=== PATIENT | female | born 1975 | race Caucasian/White ===

== ENCOUNTER 2024-01-08 07:30 | Outpatient (CLI) | payer BC, SELFPAY ==
--- OUTSIDE RECORDS SUMMARY | 2024-01-11 05:50 | XMS_ITS ---
Author Organization [facility] Address [address] [place] [address] Care Team Providers Care Crab Backer Name Role Phone Unavailable Unavailable Unavailable Surgery Details Not on file Complications Check Surgery Details section. Procedure Estimated Blood Loss Check Surgery Details section. Procedure Findings Check Surgery Details section. Procedure Specimens Taken Check Surgery Details section.
--- OUTSIDE RECORDS SUMMARY | 2024-01-11 05:50 | XMS_ITS | Referral Summary ---
Author Organization [facility] Address [address] [place] [address] Care Team Providers Care Custom Ski Maker Name Role Phone Chandan Camarillo M.D. Primary Care Provider [phone] Source Comments Patient records contain information from all sites at [facility]. For routine questions regarding patient records, call [phone] during business hours, M-F 8:00 AM - 5:00 PM Central Time. Record requests for emergency care only can be directed to [phone] at any time.[facility] Encounters Date Type Department Care Team Description 10/18/2023 5:20 AM CDT E-Visit [facility] Express Care [address] [place] [address] Radha Irby, CORRIE, C.N.P., M.S.N. Express Care Online for Sinus Symptoms (sinusitis) 10/12/2023 Refill Department of Family Medicine, [facility], in [address] [phone] Chandan Camarillo M.D. Med Refill from Last 3 Months Allergies Active Allergy Reactions Criticality Noted Date Comments Anesthetics - Dinah Type- Parabens Other (see comments) 10/04/2013 ESTERS Penicillins Angioedema,Hives only, no other systemic symptoms 12/22/2014 hives,throat swelling (see note 10/11/2005) Sulfa (Sulfonamide Antibiotics) Other (see comments) 10/04/2013 SULFA DRUGS Medications Medication Sig Dispensed Refills Start Date End Date Status losartan-hydroCHLOROt hiazide (HYZAAR) 50-12.5 mg per tabletIndications:Hyp ertension Essential Primary Take 1 tablet by mouth daily. 90 tablet 3 02/01/2023 Active citalopram (CeleXA) 20 mg tabletIndications:Adj ustment Disorder Mixed Reaction Take 1 tablet (20 mg total) by mouth daily. 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 Hyperlipidemia Mixed 12/07/2014 Overview: Mixed hyperlipidemia 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 05/18/2010 Immunizations Name Administration Dates Next Due Influenza TIV (IM) 03/21/2012 Influenza, Seasonal, Injectable 04/09/20 14,03/28/2013,03/21/2012,2010 Influenza, Unspecified 05/03/2018,2015,04/09/2014,2011,04/12/2009 SARS-COV-2 (COVID-19) - PFIZ ER (Discontinued)(12 years or older) 06/28/2021,06/07/2021 Td (Adult), adsorbed 06/14/2006 Td Preservative Free (TENIVA C, DECAVAC) 06/14/2006 Tdap 12/22/2014 influenza vaccine quad (FLUZONE/FLUARIX) (6 months and older)(PF) 04/06/2022,06/28/2021,05/07/2019 Social History Tobacco Use Types Packs/Day Years Used Date Smoking Tobacco: Every Day Cigarettes 0.8 2 Smokeless Tobacco: Never Alcohol Use Standard Drinks/Week Comments No 0 (1 standard drink = 0.6 oz pur e alcohol) Humiliation, Afraid, Rape, and Kick questionnair e Answer Date Recorded Within the last year, have y ou been afraid of your partner or ex-partner? No 01/25/2023 Within the last year, have y ou been humiliated or emotionally abused in other ways by your partner or ex-partner? No Within the last year, have y ou been kicked, hit, slapped, or otherwise physically hurt by your partner or ex-partner? No 01/25/2023 Within the last year, have y ou been raped or forced to have any kind of sexual activity by your partner or ex-partner? No 01/25/2023 Social Connection and Isolat ion Panel [NHANES] Answer Date Recorded In a typical week, how many times do you talk on the phone with family, friends, or neighbors? More than three times a week 06/09/2022 How often do you get togethe r with friends or relatives? More than three times a week 06/09/2022 How often do you attend [facility] or confucianism services? More than 4 times per year 06/09/2022 Do you belong to any clubs o r organizations such as sabianist groups, unions, fraternal or athletic groups, or school groups? No 06/09/2022 How often do you attend meet ings of the clubs or organizations you belong to? Patient declined 06/09/2022 Are you , , di vorced, , never , or living with a partner? Never 06/09/2022 AUDIT-C Answer Date Recorded Q1: How often do you have a drink containing alc ohol? Never 06/09/2022 Average Number of Drinks Not on file 022 Frequency of Binge Drinking Not on file 08/2021 Overall Financial Resource Strain (CARDIA) Answe r Date Recorded How hard is it for you to pa y for the very basics like food, housing, medical care, and heating? Somewhat hard 01/25/2023 PHQ-2 Answer Date Recorded PHQ-2 Score 1 01/25/2023 [facility] - Occupational Stress Questionnaire Answer Date Recorded Do you feel stress - tense, restless, nervous, or anxious, or unable to sleep at night because your mind is troubled all the time - these days? Only a little 06/09/2022 Exercise Vital Sign Answer Date Recorde d On average, how many days pe r week do you engage in moderate to strenuous exercise (like a brisk walk)? 1 day 06/09/2022 On average, how many minutes do you engage in exercise at this level? 30 min 06/09/2022 Hunger Vital Sign Answer Date Recorded Within the past 12 months, y ou worried that your food would run out before you got the money to buy more. Never true Within the past 12 months, t he food you bought just didn't last and you didn't have money to get more. Sometimes true PRAPARE - Transportation Answer Date Re corded In the past 12 months, has l ack of transportation kept you from medical appointments or from getting medications? No 01/07 In the past 12 months, has l ack of transportation kept you from meetings, work, or from getting things needed for daily living? No 01/25/2023 Depression Answer Date Recor ded PHQ-9 Total Score (max 27) 11 10/31 Nutrition Answer Date Recorded Nutrition: EVOO Fat Source Yes 06/09 On average, how many serving s of fruits and vegetables do you eat per day (serving size is equal to 1 cup or approximately the size of a tennis ball)? 0-1 06/09/2022 Dental Answer Date Recorded Dental: Regular Dentist No 10/25/19 Employment Answer Date Recorded Employment status Employed and actively working without restrictions 06/09/2022 Housing Stability Answer Date Recorded What is your living situation today? I have a [facility] place to live 01/25/2023 Education Answer Date Recorded What is the highest level of school you have completed or the highest degree you have received? Associate degree: occupational, technical, or vocational program 06/09/2022 Sex and Gender Information Value Date Recorded Sex Assigned at Female 10/24/2021 3:36 AM CDT Gender Identity Female 05/28/2017 8:00 PM GRAVEL WEIGHER Sexual Orientation Straight 05/28/2017 8: 00 PM GRAVEL WEIGHER Last Filed Vital Signs Vital Sign Reading Time Taken Comments Blood Pressure 102/63 02/01/2023 3:[address] rage Pulse 62 02/01/2023 3:27 PM CDT Temperature 36.4 ??C (97.5 ??F) 02/01/2023 3:27 PM CD T Respiratory Rate - - Oxygen Saturation 97% 05/18/2022 2:49 PM GRAVEL WEIGHER Inhaled Oxygen Concentration - - Weight 126 kg (278 lb 3.5 oz) 02/01/2023 3:27 PM CDT Height 165 cm (5' 4.96) 06/14/2022 3:24 PM GRAVEL WEIGHER Body Mass Index 46.35 06/14/2022 3:24 PM GRAVEL WEIGHER Plan of Treatment Not on file Procedures Procedure Name Priority Date/Time Associated Diagnosis Comments LIPID PANEL, S Routine 02/01/2023 3:20 PM CDT Hyperlipidemia Mixed BASIC METABOLIC PANEL, S/P Routine 02/01/2023 3:20 PM CDT Hypertension Essential Primary BI BREAST SCREENING BILATERAL WITH TOMOSYNTHESIS RAD - Routine (most inpatients and all outpatients) 07/15/2019 3:40 PM GRAVEL WEIGHER Screening Mammogram Breast Cancer HIV-1/-2 AG AND AB SCREEN Routine 06/13/2017 4:01 PM GRAVEL WEIGHER Screening For Venereal Disease from Last 3 Months or Most Recently Relevant to Health Maintenance Results * (ABNORMAL) Lipid Panel (02/01/2023 3:20 PM CDT) Triglycerides 251(H) mg/dL 02/01/2023 4:02 PM CDT [facility] Comment: ----REFERENCE VALUE---- Normal: <150 mg/dL Borderline High: 150-199 mg/dL High: 200-499 mg/dL Very High: > or =500 mg/dL Cholesterol, Total 203(H) mg/dL 2022 4:02 PM CDT [facility] Comment: ----REFERENCE VALUE---- Desirable: < 200 mg/dL Borderline High: 200 - 239 mg/dL High: > or = 240 mg/dL Cholesterol, LDL, Calculated 115 mg/dL 02/01/2023 4:02 PM CDT [facility] Comment: ----REFERENCE VALUE---- Desirable: <100 mg/dL Above Desirable: 100-129 mg/dL Borderline High: 130-159 mg/dL High: 160-189 mg/dL Very High: >=190 mg/dL ----ADDITIONAL INFORMATION---- LDL cholesterol calculated using the Mckeon/NIH equation. Cholesterol, HDL 44(L) >=50 mg/dL 02/02/20 4:02 PM CDT [facility] Cholesterol, Non-HDL, Calculated 159 mg/dL 02/01/2023 4:02 PM CDT [facility] Comment: ----REFERENCE VALUE---- Desirable: <130 mg/dL Above Desirable: 130-159 mg/dL Borderline High: 160-189 mg/dL High: 190-219 mg/dL Very High: > or =220 mg/dL Fasting (8 HR or more) n 02/01/2023 3:21 PM CDT [facility] Blood (Blood, Venous) 02/01/2023 3:20 PM CDT 02/01/2023 3:21 PM CDT Chandan Camarillo M.D. LAB BLOOD ADD-ON [facility] [address] [place] [address], [facility] [address] [place] [phone] * (ABNORMAL) Basic Metabolic Panel (02/01/2023 3:20 PM CDT) Potassium, P 4.0 3.6 - 5.2 mmol/L 02/01/2023 4:21 PM CDT [facility] Sodium, P 135 135 - 145 mmol/L 02/01/2023 4:21 PM CDT [facility] Chloride, P 100 98 - 107 mmol/L 02/01/2023 4:21 PM CDT [facility] Bicarbonate, P 21(L) 22 - 29 mmol/L 02/01/2023 4:21 PM CDT [facility] Anion Gap, P 14 7 - 15 02/01/2023 4:21 PM CDT [facility] BUN (Blood Urea Nitrogen), P 25(H) 6 - 21 mg/dL 02/01/2023 4:21 PM CDT [facility] Creatinine 0.88 0.59 - 1.04 mg/dL 02/01/2023 4:21 PM CDT [facility] Estimated GFR (eGFR) 82 >=60 mL/min/BSA 02/01/2023 4:21 PM CDT [facility] Comment: Estimated GFR calculated using the 2020 CKD_EPI creatinine equation. Calcium, Total, P 9.0 8.6 - 10.0 mg/dL 02/01/2023 4:21 PM CDT [facility] Glucose, P 88 70 - 140 mg/dL 02/01/2023 4:21 PM CDT [facility] Blood (Blood, Venous) 02/01/2023 3:20 PM CDT 02/01/2023 4:09 PM CDT Chandan Camarillo M.D. LAB BLOOD ADD-ON [facility] [address] [place] [address], [facility] [address] [place] [phone] * BI Breast Screening Bilateral with Tomosynthesis (07/15/2019 3:40 PM GRAVEL WEIGHER) Anatomical Region Laterality Modality Breast, Breast Imaging RST L OS, Breast Imaging ARZ LOS, Breast Imaging FLA LOS Bilateral Mammography 07/16/2019 9:59 AM GRAVEL WEIGHER Impressions 07/16/2019 10:02 AM GRAVEL WEIGHER Negative. RECOMMENDATION: ??Annual Screening Mammogram ASSESSMENT: ??BI-RADS: 1: Negative. Narrative 07/16/2019 10:02 AM GRAVEL WEIGHER EXAM: ??BI BREAST SCREENING BILATERAL WITH TOMOSYNTHESIS Current study was evaluated with a Computer Aided Detection (CAD) system. INDICATION: ??Screening mammogram. COMPARISON: ??Prior exam(s) were available and reviewed for comparison. DENSITY: ??c. The breast(s) are heterogeneously dense, which may obscure small masses. FINDINGS: ??No mammographic findings of malignancy. Procedure Note Jesús Anguiano M.D. - 07/16/2019 EXAM: BI BREAST SCREENING BILATERAL WITH TOMOSYNTHESIS Current study was evaluated with a Computer Aided Detection (CAD) system. INDICATION: Screening mammogram. COMPARISON: Prior exam(s) were available and reviewed for comparison. DENSITY: c. The breast(s) are heterogeneously dense, which may obscuresmall masses. FINDINGS: No mammographic findings of malignancy. IMPRESSION: Negative. RECOMMENDATION: Annual Screening Mammogram ASSESSMENT: BI-RADS: 1: Negative. Chandan Camarillo M.D. IMG BI PROCEDURES * HIV-1/-2 Ag and Ab Screen (06/13/2017 4:01 PM GRAVEL WEIGHER) HIV-1/-2 Ag and Ab Screen, S Negative Negative 06/14/2017 11:55 AM GRAVEL WEIGHER [facility] Comment: Negative result does not rule out HIV infection. If acute HIV infection is suspected in a high-risk individual, submit plasma specimen for HIV-1 RNA quantification test (HIVDQ) and/or HIV-2 DNA/RNA test (FHV2Q). Blood (Blood, Venous) 06/13/2017 4:01 PM GRAVEL WEIGHER 06/14/2017 7:58 AM GRAVEL WEIGHER Kellie Hernandez APRN CRonaldoNRonaldoPRonaldo LAB MICROBIOLO GY - BLOOD ORDERABLES [facility] [address] [place] [address] from Last 3 Months or Most Recently Relevant to Health Maintenance Care Teams Custom Ski Maker Relationship Specialty Start Date End Date Chandan Camarillo M.D. [address] [phone] PCP - General 12/21/16
--- OUTSIDE RECORDS SUMMARY | 2024-01-11 05:50 | XMS_ITS | Encounter Summary ---
Author Organization [facility] Address [address] [place] [address] Care Team Providers Care Wood Turner Name Role Phone Chandan Camarillo M.D. Primary Care Provider [phone] Encounter Details Date Type Department Care Team (Late st Contact Info) Description 10/18/2023 5:20 AM CDT E-Visit [facility] Express Care [address] [place] [phone] Radha Irby, CORRIE, C.N.P., M.S.N. [address] [place] [phone] Express Care Online for Sinus Symptoms (sinusitis) Social History Tobacco Use Types Packs/Day Years [...] week 06/09/2022 How often do you attend chur ch or catholic services? More than 4 times per year 06/09/2022 Do you belong to any clubs o r organizations such as yarsani groups, unions, fraternal or athletic groups, or [...] Average Number of Drinks Not on file Frequency of Binge Drinking Not on file 08/2021 Overall Financial Resource Strain (CARDIA) Answe r Date Recorded How hard is it for you to pa y for the very basics like food, housing, medical care, and heating? Somewhat hard 01/25/2023 PHQ-2 Answer Date Recorded PHQ-2 Score 1 01/25/2023 [facility] - Occupational [...] your living situation today? I have a [facility] place to live 01/25/2023 Education Answer Date Recorded What is the highest level of school you have completed or the highest degree you have received? Associate degree: occupational, technical, or vocational program 06/09/2022 Sex and Gender Information Value Date Recorded Sex Assigned at Female 10/24/2021 3:36 AM CDT Gender Identity Female 05/28/2017 8:00 PM SIGNS CLEANER Sexual Orientation Straight 05/28/2017 8: 00 PM SIGNS CLEANER documented as of this encounter Plan of Treatment Not on file documented as of this encounter Visit Diagnoses Diagnosis Infection Upper Respiratory- Primary Cough Unspecified Type documented in this encounter Additional Health Concerns Assessment Noted Time PHQ-9 Depression Total Score: 11 022 10:33 AM CDT documented as of this encounter Care Teams Wood Turner Relationship Specialty Start Date End Date Chandan Camarillo M.D. [address] [phone] PCP - General 12/21/16 documented as of this encounter
--- OUTSIDE RECORDS SUMMARY | 2024-01-11 05:50 | XMS_ITS | Encounter Summary ---
Author Organization [facility] Address [address] [place] [address] Care Team Providers Care Fire Investigator Name Role Phone Chandan Camarillo M.D. Primary Care Provider [phone] Reason for Visit * Reason Comments Med Refill Encounter Details Date Type Department Care Team (Late st Contact Info) Description 10/12/2023 Refill Department of Family Medicine, [facility], in [place], [place] [address] [place] [phone] Chandan Camarillo M.D. [address] [place] [phone] Med Refill Social History Tobacco Use Types Packs/Day Years [...] often do you attend chur ch or quaker services? More than 4 times per year 06/09/2022 Do you belong to any clubs o r organizations such as druze groups, unions, fraternal or athletic groups, or [...] Answer Date Recorded PHQ-2 Score 1 01/25/2023 [facility] - Occupational Stress [...] your living situation today? I have a [facility] place to live 01/25/2023 Education Answer Date Recorded What is the highest level of school you have completed or the highest degree you have received? Associate degree: occupational, technical, or vocational program 06/09/2022 Sex and Gender Information Value Date Recorded Sex Assigned at Female 10/24/2021 3:36 AM CDT Gender Identity Female 05/28/2017 8:00 PM CUTTING MACHINE OPERATOR Sexual Orientation Straight 05/28/2017 8: 00 PM CUTTING MACHINE OPERATOR documented as of this encounter Miscellaneous Notes * Telephone Encounter - Chandan Camarillo M.D. - 10/12/2023 10:13 AM CDT Rx approved. documented in this encounter Plan of Treatment Not on file documented as of this encounter Visit Diagnoses Diagnosis Migraine Headache Hypertension Essential Primary documented in this encounter Additional Health Concerns Assessment Noted Time PHQ-9 Depression Total Score: 11 022 10:33 AM CDT documented as of this encounter Care Teams Fire Investigator Relationship Specialty Start Date End Date Chandan Camarillo M.D. [address] [place] [phone] PCP - General 12/21/16 documented as of this encounter
--- OUTSIDE RECORDS SUMMARY | 2024-01-11 05:50 | XMS_ITS | Clinical Summary ---
Author Organization [facility] Address [address] [place] [address] Care Team Providers Care Welder Manufacture Name Role Phone Chandan Camarillo M.D. Primary Care Provider [phone] Source Comments Patient records contain information from all sites at [facility]. For routine questions regarding patient records, call [phone] during business hours, M-F 8:00 AM - 5:00 PM Central Time. 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 Express Care Online for Sinus Symptoms (sinusitis) 10/12/2023 Refill Department of Family Medicine, [facility], in [address] [phone] Chandan Camarillo M.D. Med Refill from Last 3 Months Immunizations Name Administration Dates Next Due Influenza TIV (IM) 03/21/2012 Influenza, Seasonal, Injectable 04/09/20 14,03/28/2013,03/21/2012,2010 Influenza, Unspecified 05/03/2018,2015,04/09/2014,2011,04/12/2009 SARS-COV-2 (COVID-19) - PFIZ ER (Discontinued)(12 years or older) 06/28/2021,06/07/2021 Td (Adult), adsorbed 06/14/2006 Td Preservative Free (TENIVA C, DECAVAC) 06/14/2006 Tdap 12/22/2014 influenza vaccine quad (FLUZONE/FLUARIX) (6 months and older)(PF) 04/06/2022,06/28/2021,05/07/2019 Family History Medical History Relation Name Comments Colon cancer Grandmother 1 Paternal Bladder cancer Grandmother 2 Maternal Diabetes Mother Simi Mcguire Borderline Hypertension Mother Simi Mcguire Colon cancer Paternal Grandmother Nicole mcguire Relation Name Status Comments Grandmother 1 Paternal Grandmother 2 Maternal Mother Simi Mcguire Paternal Grandmother Nicole mcguire Social History Tobacco Use Types Packs/Day Years [...] week 06/09/2022 How often do you attend [facility] or buddhist services? More than 4 times per year 06/09/2022 Do you belong to any clubs o r organizations such as synagogue groups, unions, fraternal or athletic groups, or [...] Answer Date Recorded PHQ-2 Score 1 01/25/2023 [facility] - Occupational Stress Questionnaire Answer Date Recorded [...] your living situation today? [facility] 01/25/2023 Education Answer Date Recorded What is the highest level of school you have completed or the highest degree you have received? Associate degree: occupational, technical, or vocational program 06/09/2022 Sex and Gender Information Value Date Recorded Sex Assigned at Female 10/24/2021 3:36 AM CDT Gender Identity Female 05/28/2017 8:00 PM MANAGER APPLICATION Sexual Orientation Straight 05/28/2017 8: 00 PM MANAGER APPLICATION Last Filed Vital Signs Vital Sign Reading Time Taken Comments Blood Pressure 102/63 02/01/2023 3:[address] Pulse 62 02/01/2023 3:27 PM CDT Temperature 36.4 ??C (97.5 ??F) 02/01/2023 3:27 PM CD T Respiratory Rate - - Oxygen Saturation 97% 05/18/2022 2:49 PM MANAGER APPLICATION Inhaled Oxygen Concentration - - Weight 126 kg (278 lb 3.5 oz) 02/01/2023 3:27 PM CDT Height 165 cm (5' 4.96) 06/14/2022 3:24 PM MANAGER APPLICATION Body Mass Index 46.35 06/14/2022 3:24 PM MANAGER APPLICATION Plan of Treatment Health Maintenance Due Date Last Done Comments CT Colonography 1975 Cologuard 1975 Colonoscopy 1975 Colorectal Cancer Screening 1975 FIT 1975 Hepatitis C Screening 1975 Tobacco Cessation counseling 1975 Pneumococcal vaccine (0-64 y ears) (1 of 2 - PCV) 11/27/1981 Hepatitis B Vaccines (1 of 3 - 19+ 3-dose series) 11/27/1994 Mammogram 07/15/2020 07/15/2019, 09/19/2017 COVID-19 Vaccine (3 - 2022-2 4 season) 2023 06/28/2021, 06/07/2021 Depression Screening (Annual PHQ-2) 07/09/2023 Creatinine Level (Kidney Fun ction Test) 02/02/2024 02/01/2023, 02/01/2022, 01/02/2022, Additional history exists Fasting Glucose for Diabetes Screening 02/02/2024 02/01/2023, 11/29/2021, 05/01/2017, Additional history exists Lipid (Cholesterol) Screening 02/02/2024, 11/29/2021, 05/01/2017 Office Visit for Blood Press ure Check / Re-check 02/02/2024 02/01/2023 Potassium Level 02/02/2024 02/01/2023, 01/07, 01/02/2022, Additional history exists Sodium Level 02/02/2024 02/01/2023, 01/07, 11/29/2021, Additional history exists Visit: Chronic Disease, age 18+ 02/02/2024 3 Influenza Vaccine (#1) 2024 2, 06/28/2021, 05/07/2019, Additional history exists DTaP,Tdap,and Td Vaccines (2 - Td or Tdap) 12/22/2024 12/22/2014, 06/14/2006, 06/14/2006 HIV Screening Completed 06/13/2017 Procedures Procedure Name Priority Date/Time Associated Diagnosis Comments LIPID PANEL, S Routine 02/01/2023 3:20 PM CDT Hyperlipidemia Mixed BASIC METABOLIC PANEL, S/P Routine 02/01/2023 3:20 PM CDT Hypertension Essential Primary BI BREAST SCREENING BILATERAL WITH TOMOSYNTHESIS RAD - Routine (most inpatients and all outpatients) 07/15/2019 3:40 PM MANAGER APPLICATION Screening Mammogram Breast Cancer HIV-1/-2 AG AND AB SCREEN Routine 06/13/2017 4:01 PM MANAGER APPLICATION Screening For Venereal Disease from Last 3 [...] CDT Chandan Camarillo M.D. LAB BLOOD ADD-ON [facility] [address] [place] [address], [facility] [address] [place] [phone] * (ABNORMAL) Basic Metabolic Panel (02/01/2023 3:20 [...] CDT Chandan Camarillo M.D. LAB BLOOD ADD-ON [facility] [address] [place] [address], [facility] [address] [place] [phone] * BI Breast Screening Bilateral with Tomosynthesis (07/15/2019 3:40 PM MANAGER APPLICATION) Anatomical Region Laterality Modality Breast, Breast Imaging RST L OS, Breast Imaging ARZ LOS, Breast Imaging FLA LOS Bilateral Mammography 07/16/2019 9:59 AM MANAGER APPLICATION Impressions 07/16/2019 10:02 AM MANAGER APPLICATION Negative. RECOMMENDATION: ??Annual Screening Mammogram ASSESSMENT: ??BI-RADS: 1: Negative. Narrative 07/16/2019 10:02 AM MANAGER APPLICATION EXAM: ??BI BREAST SCREENING BILATERAL WITH TOMOSYNTHESIS [...] Ag and Ab Screen (06/13/2017 4:01 PM MANAGER APPLICATION) HIV-1/-2 Ag and Ab Screen, S Negative Negative 06/14/2017 11:55 AM MANAGER APPLICATION [facility] Comment: Negative result does not rule out HIV infection. If acute HIV infection is suspected in a high-risk individual, submit plasma specimen for HIV-1 RNA quantification test (HIVDQ) and/or HIV-2 DNA/RNA test (FHV2Q). Blood (Blood, Venous) 06/13/2017 4:01 PM MANAGER APPLICATION 06/14/2017 7:58 AM MANAGER APPLICATION Kellie Hernandez APRN, C.N.P. LAB MICROBIOLO GY - BLOOD ORDERABLES [facility] [address] [place] [address] from Last 3 Months or Most Recently Relevant to Health Maintenance Care Teams Welder Manufacture Relationship Specialty Start Date End Date Chandan Camarillo M.D. [address] [place] [phone] PCP - General 12/21/16
--- OUTSIDE RECORDS SUMMARY | 2024-01-11 05:50 | XMS_ITS | Encounter Summary ---
Author Organization [facility] Address [address] [place] [address] Care Team Providers Care Cable Operator Name Role Phone Chandan Camarillo M.D. Primary Care Provider + [phone] Encounter Details Date Type Department Care Team (Late st Contact Info) Description 05/18/2010 Historical Ophthalmology [place] [address] Social History Tobacco Use Types Packs/Day Years Used Date Smoking Tobacco: Never Assessed Sex and Gender Information Value Date Recorded Sex Assigned at Female 10/24/2021 3:36 AM CDT Gender Identity Female 05/28/2017 8:00 PM IT SALES REPRESENTATIVE Sexual Orientation Straight 05/28/2017 8: 00 PM IT SALES REPRESENTATIVE documented as of this encounter Progress Notes * Az Che M.D. - 05/18/2010 8:53 AM CST Eye General CHIEF COMPLAINT history of Pseudotumor. HISTORY OF PRESENT ILLNESS 34 year old female with history of pseudotumor. 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 Patient has noted an onset of pressure, both eyes, intermittent, mild, x 1 year. Advil/Tylenol seem to help. Notes a slight decrease in vision right eye. Denies flashes or floaters. JPB: as above. Pt reports that over the last 1 year she has noticing with increasing frequency thatshe will have intermittent and recurrent pressure feelings centered below bilateral eyes and in sinuses. These episode seem to be brought on by drinking things that are high in sodium (some soft drinks, salty foods). Caffeine does not seem to be associated with these episodes. These episodes onlylast a few minutes but will recur through the day, drinking water seems to help. Pt also states that she seems to have developed a blind spot in the temporal portion of the right eye visual field (3-6 o'clock). This was first noticed approx 2-3 months ago. 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 Photos show degree of optic atrophy right eye. Left eye looks OK. 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 [facility] [place] [phone] PCP - General 12/21/16 documented as of this encounter
== END 2024-01-08 07:31 | disposition home or self-care (01) ==
LOC: NFLDREF 01-11 05:48
PROVIDERS: PCP Family Medicine; Referring Provider Family Medicine; Visit Provider Family Medicine
DX: E78.2 Mixed hyperlipidemia (principal); R73.03 Prediabetes
CPT/HCPCS: 80053; 80061

== ENCOUNTER 2024-03-26 07:34 | Outpatient (CLI) | payer BC, SELFPAY ==
--- OUTSIDE RECORDS SUMMARY | 2024-03-26 07:37 | XMS_ITS | Encounter Summary ---
Author Organization [facility] Address [address] [place] [address] Care Team Providers Care Mirror Machine Feeder Name Role Phone None Reported, Pcp Primary Care Provider Unavail able Encounter Details Date Type Department Care Team (Late st Contact Info) Description 05/18/2010 Historical Ophthalmology [facility] [place] [address] Social History Tobacco Use Types Packs/Day Years Used Date Smoking Tobacco: Never Assessed Sex and Gender Information Value Date Recorded Sex Assigned at Female 10/24/2021 3:36 AM CDT Gender Identity Female 05/28/2017 8:00 PM PAD MAKING MACHINE OPERATOR Sexual Orientation Straight 05/28/2017 8: 00 PM PAD MAKING MACHINE OPERATOR documented as of this encounter Progress Notes [...] right eye CDM Reports - EYEGEN Id: [id number] Status: Fnl documented in this encounter Plan of Treatment Not on file documented as of this encounter Visit Diagnoses Not on filedocumented in this encounter Additional Health Concerns Infection Onset Date Last Indicated Resolved Time COVID19 07/27/2022 07/27/2022 08/16/2022 5:24 AM PAD MAKING MACHINE OPERATOR documented as of this encounter Care Teams Mirror Machine Feeder Relationship Specialty Start Date End Date None Reported, Pcp PCP - General Family Medicine 03/05/24 documented as of this encounter
--- OUTSIDE RECORDS SUMMARY | 2024-03-26 07:37 | XMS_ITS | Encounter Summary ---
Author Organization [facility] Address [address] [place] [address] Care Team Providers Care Content Management Consultant Name Role Phone Chandan Camarillo M.D. Primary Care Provider + [phone] Encounter Details Date Type Department Care Team (Late st Contact Info) Description 01/15/2024 Orders Only [facility] PCP [facility] MNT Chandan Camarillo M.D. [address] [place] [phone] Hyperlipidemia Mixed; Screening Examination Diabetes Mellitus; Screening Mammogram Breast Cancer Social History Tobacco Use Types Packs/Day Years [...] 06/09/2022 How often do you attend chur or presybeterian services? More than 4 times per year 06/09/2022 Do you belong to any clubs o r organizations such as evangelical groups, unions, fraternal or athletic groups, or [...] Answer Date Recorded PHQ-2 Score 1 01/25/2023 [facility] - Occupational Stress [...] your living situation today? I have a [facility] place to live 01/25/2023 Education Answer Date Recorded What is the highest level of school you have completed or the highest degree you have received? Associate degree: occupational, technical, or vocational program 06/09/2022 Sex and Gender Information Value Date Recorded Sex Assigned at Female 10/24/2021 3:36 AM CDT Gender Identity Female 05/28/2017 8:00 PM ENVIRONMENTAL GEOLOGIST Sexual Orientation Straight 05/28/2017 8: 00 PM ENVIRONMENTAL GEOLOGIST documented as of this encounter Plan of Treatment Not on file documented as of this encounter Visit Diagnoses Diagnosis Hyperlipidemia Mixed Screening Examination Diabetes Mellitus Screening Mammogram Breast Cancer documented in this encounter Additional Health Concerns Assessment Noted Time PHQ-9 Depression Total Score: 11 022 10:33 AM CDT documented as of this encounter Care Teams Content Management Consultant Relationship Specialty Start Date End Date Chandan Camarillo M.D. [address] [place] [phone] PCP - General 12/21/16 03/04/24 documented as of this encounter
--- OUTSIDE RECORDS SUMMARY | 2024-03-26 07:37 | XMS_ITS ---
Author Organization [facility] Address [address] [place] [address] Care Team Providers Care Scrap Hoist Operator Name Role Phone Unavailable Unavailable Unavailable Surgery Details Not on file Complications Check Surgery Details section. Procedure Estimated Blood Loss Check Surgery Details section. Procedure Findings Check Surgery Details section. Procedure Specimens Taken Check Surgery Details section.
--- OUTSIDE RECORDS SUMMARY | 2024-03-26 07:37 | XMS_ITS | Referral Summary ---
Author Organization [facility] Address [address] [place] [address] Care Team Providers Care Technical Services Consultant Name Role Phone None Reported, Pcp Primary Care Provider Unavail able Source Comments Patient records contain information from all sites at [facility]. For routine questions regarding patient records, call [phone] during business hours, M-F 8:00 AM - 5:00 PM Central Time. Record requests for emergency care only can be directed to [phone] at any time.[facility] Encounters Date Type Department Care Team Description 03/04/2024 Clinical Communication Department of Family Medicine, [facility], in [address] [phone] Ni De La Cruz R.N. Quality 01/16/2024 Refill Department of Family Medicine, [facility], [address] [phone] Chandan Camarillo M.D. Med Refill 01/15/2024 Orders Only [facility] PCP [facility] Chandan Camarillo M.D. Hyperlipidemia Mixed; Screening Examination Diabetes Mellitus; Screening Mammogram Breast Cancer from Last 3 Months Allergies Active Allergy Reactions Criticality Noted Date Comments Anesthetics - Dinah Type- Parabens Other (see comments) 10/04/2013 ESTERS Penicillins Angioedema,Hives only, no other systemic symptoms 12/22/2014 hives,throat swelling (see note 10/11/2005) Sulfa (Sulfonamide Antibiotics) Other (see comments) 10/04/2013 SULFA DRUGS Medications Medication Sig Dispensed Refills Start Date End Date Status citalopram (CeleXA) 20 mg tabletIndications:Adj ustment Disorder Mixed Reaction Take 1 tablet (20 mg total) by mouth daily. 90 tablet 3 02/01/2023 Active verapamiL (CALAN) 80 mg tabletIndications:Fermin connelly Headache,Hypertension Essential Primary take one tablet by mouth three times a day 270 tablet 3 10/12/2023 Active losartan-hydroCHLOROt hiazide (Hyzaar) 50-12.5 mg per tabletIndications:Hyp ertension Essential Primary take one tablet by mouth one time daily 60 tablet 01/18/2024 Active Active Problems Problem Noted Date Diagnosed Date PreDiabetes 11/29/2021 Reaction Grief Brief 10/31/2021 Morbid Obesity Body Mass Index 45.0-49.9 Adult 0 03/18/2019 Tobacco Use 03/18/2019 Hypertension Essential Primary 04/13/2016 Overview (2016): Hypertension (HTN) Essential 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 Hyperlipidemia Mixed 12/07/2014 Overview (06/06/2017): Mixed hyperlipidemia 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 05/18/2010 Immunizations Name Administration Dates Next Due Influenza TIV (IM) 03/21/2012 Influenza, Seasonal, Injectable 04/09/20 14,03/28/2013,03/21/2012,2010 Influenza, Unspecified 05/03/2018,2015,04/09/2014,2011,04/12/2009 SARS-COV-2 (COVID-19) - PFIZ ER (Discontinued)(12 years or older) 06/28/2021,06/07/2021 Td (Adult), adsorbed 06/14/2006 Td Preservative Free (TENIVA C, DECAVAC) 06/14/2006 Tdap 12/22/2014 influenza vaccine quad (FLUZONE/FLUARIX) (6 months and older)(PF) 04/06/2022,06/28/2021,05/07/2019,2017,03/28/2013,04/13/2011,04/12/2009 Social History Tobacco Use Types Packs/Day Years [...] week 06/09/2022 How often do you attend [facility] or denominational services? More than 4 times per year 06/09/2022 Do you belong to any clubs o r organizations such as mandaeism groups, unions, fraternal or athletic groups, or [...] Answer Date Recorded PHQ-2 Score 1 01/25/2023 [facility] - Occupational Stress Questionnaire Answer Date Recorded [...] your living situation today? I have a [facility] place to live 01/25/2023 Education Answer Date Recorded What is the highest level of school you have completed or the highest degree you have received? Associate degree: occupational, technical, or vocational program 06/09/2022 Sex and Gender Information Value Date Recorded Sex Assigned at Female 10/24/2021 3:36 AM CDT Gender Identity Female 05/28/2017 8:00 PM WINDOW SHADE INSTALLER Sexual Orientation Straight 05/28/2017 8: 00 PM WINDOW SHADE INSTALLER Last Filed Vital Signs Vital Sign Reading Time Taken Comments Blood Pressure 102/63 02/01/2023 3:[address] Pulse 62 02/01/2023 3:27 PM CDT Temperature 36.4 ??C (97.5 ??F) 02/01/2023 3:27 PM CD T Respiratory Rate - - Oxygen Saturation 97% 05/18/2022 2:49 PM WINDOW SHADE INSTALLER Inhaled Oxygen Concentration - - Weight 126 kg (278 lb 3.5 oz) 02/01/2023 3:27 PM CDT Height 165 cm (5' 4.96) 06/14/2022 3:24 PM WINDOW SHADE INSTALLER Body Mass Index 46.35 06/14/2022 3:24 PM WINDOW SHADE INSTALLER Plan of Treatment Not on file Procedures Procedure Name Priority Date/Time Associated Diagnosis Comments LIPID PANEL, S Routine 02/01/2023 3:20 PM CDT Hyperlipidemia Mixed BASIC METABOLIC PANEL, S/P Routine 02/01/2023 3:20 PM CDT Hypertension Essential Primary BI BREAST SCREENING BILATERAL WITH TOMOSYNTHESIS RAD - Routine (most inpatients and all outpatients) 07/15/2019 3:40 PM WINDOW SHADE INSTALLER Screening Mammogram Breast Cancer HIV-1/-2 AG AND AB SCREEN Routine 06/13/2017 4:01 PM WINDOW SHADE INSTALLER Screening For Venereal Disease from Last 3 [...] CDT Chandan Camarillo M.D. LAB BLOOD ADD-ON [facility] [address] [place] [address], [email or web address] [address] [place] [phone] * (ABNORMAL) Basic Metabolic Panel (02/01/2023 3:20 [...] CDT Chandan Camarillo M.D. LAB BLOOD ADD-ON [facility] [address] [place] [address], [email or web address] [address] [place] [phone] * BI Breast Screening Bilateral with Tomosynthesis (07/15/2019 3:40 PM WINDOW SHADE INSTALLER) Anatomical Region Laterality Modality Breast, Breast Imaging RST L OS, Breast Imaging ARZ LOS, Breast Imaging FLA LOS Bilateral Mammography 07/16/2019 9:59 AM WINDOW SHADE INSTALLER Impressions 07/16/2019 10:02 AM WINDOW SHADE INSTALLER Negative. RECOMMENDATION: ??Annual Screening Mammogram ASSESSMENT: ??BI-RADS: 1: Negative. Narrative 07/16/2019 10:02 AM WINDOW SHADE INSTALLER EXAM: ??BI BREAST SCREENING BILATERAL WITH TOMOSYNTHESIS [...] Ag and Ab Screen (06/13/2017 4:01 PM WINDOW SHADE INSTALLER) HIV-1/-2 Ag and Ab Screen, S Negative Negative 06/14/2017 11:55 AM WINDOW SHADE INSTALLER [facility] Comment: Negative result does not rule out HIV infection. If acute HIV infection is suspected in a high-risk individual, submit plasma specimen for HIV-1 RNA quantification test (HIVDQ) and/or HIV-2 DNA/RNA test (FHV2Q). Blood (Blood, Venous) 06/13/2017 4:01 PM WINDOW SHADE INSTALLER 06/14/2017 7:58 AM WINDOW SHADE INSTALLER Kellie Hernandez APRN, C.N.P. LAB MICROBIOLO GY - BLOOD ORDERABLES [facility] [address] [place] [phone], [facility] [[email or web address]] from Last 3 Months or Most Recently Relevant to Health Maintenance Care Teams Technical Services Consultant Relationship Specialty Start Date End Date None Reported, Pcp PCP - General Family Medicine 03/05/24
--- OUTSIDE RECORDS SUMMARY | 2024-03-26 07:37 | XMS_ITS | Encounter Summary ---
Author Organization [facility] Address [address] [place] [address] Care Team Providers Care Rn Document Improvement Specialist Name Role Phone Chandan Camarillo M.D. Primary Care Provider [phone] Reason for Visit * Reason Comments Med Refill Encounter Details Date Type Department Care Team (Late st Contact Info) Description 01/16/2024 Refill Department of Family Medicine, [facility], in [employer] [place] [address] [place] [phone] Chandan Camarillo M.D. [address] [place] [phone] Med Refill Social History Tobacco [...] often do you attend chur ch or yarsani services? More than 4 times per year 06/09/2022 Do you belong to any clubs o r organizations such as worship groups, unions, fraternal or athletic groups, or [...] Answer Date Recorded PHQ-2 Score 1 01/25/2023 [facility]at ional Health - [...] your living situation today? I have a [facility] place to live 01/25/2023 Education Answer Date Recorded What is the highest level of school you have completed or the highest degree you have received? Associate degree: occupational, technical, or vocational program 06/09/2022 Sex and Gender Information Value Date Recorded Sex Assigned at Female 10/24/2021 3:36 AM CDT Gender Identity Female 05/28/2017 8:00 PM PROGRAM ASSISTANT Sexual Orientation Straight 05/28/2017 8: 00 PM PROGRAM ASSISTANT documented as of this encounter Plan of Treatment Not on file documented as of this encounter Visit Diagnoses Diagnosis Hypertension Essential Primary documented in this encounter Additional Health Concerns Assessment Noted Time PHQ-9 Depression Total Score: 11 022 10:33 AM CDT documented as of this encounter Care Teams Rn Document Improvement Specialist Relationship Specialty Start Date End Date Chand[facility]. [facility] [phone] PCP - General 12/21/16 03/04/24 documented as of this encounter
--- OUTSIDE RECORDS SUMMARY | 2024-03-26 07:37 | XMS_ITS | Clinical Summary ---
Author Organization [facility] Address [address] [place] [address] Care Team Providers Care Quality Control Head Name Role Phone None Reported, Pcp Primary Care Provider Unavail able Source Comments Patient records contain information from all sites at [facility]. For routine questions regarding patient records, call [phone] during business hours, M-F 8:00 AM - 5:00 PM Central Time. Record requests for emergency care only can be directed to [phone] at any time.[facility] Allergies Active Allergy Reactions Criticality Noted Date [...] Team Description 03/04/[address] Clinical [address] Department of [facility], [facility], [address] [phone] Ni De La Cruz R.N. Quality 01/16/2024 Refill Department of [facility], [address] [address] Chandan Camarillo M.D. Med Refill 01/15/2024 Orders Only [facility] PCP TH MNT Chandan Camarillo M.D. Hyperlipidemia Mixed; Screening Examination Diabetes Mellitus; Screening Mammogram Breast Cancer from Last 3 Months Immunizations Name Administration Dates Next Due Influenza TIV (IM) 03/21/2012 Influenza, Seasonal, Injectable 04/09/20 14,03/28/2013,03/21/2012,2010 Influenza, Unspecified 05/03/2018,2015,04/09/2014,2011,04/12/2009 SARS-COV-2 (COVID-19) - PFIZ ER (Discontinued)(12 years or older) 06/28/2021,06/07/2021 Td (Adult), adsorbed 06/14/2006 Td Preservative Free (TENIVA C, DECAVAC) 06/14/2006 Tdap 12/22/2014 influenza vaccine quad (FLUZONE/FLUARIX) (6 months and older)(PF) 04/06/2022,06/28/2021,05/07/2019,2017,03/28/2013,04/13/2011,04/12/2009 Family History Medical History Relation Name Comments [...] week 06/09/2022 How often do you attend [facility] or mandaeism services? More than 4 times per year 06/09/2022 Do you belong to any clubs o r organizations such as sikhism groups, unions, fraternal or athletic groups, or [...] Answer Date Recorded PHQ-2 Score 1 01/25/2023 [facility] - Occupational Stress Questionnaire Answer Date Recorded [...] Date Recorded Dental: Regular Dentist No 10/25/19 22 Employment Answer Date Recorded Employment status Employed and actively working without restrictions 06/09/2022 Housing Stability Answer Date Recorded What is your living situation today? I have a [facility] place to live 01/25/2023 Education Answer Date Recorded What is the highest level of school you have completed or the highest degree you have received? Associate degree: occupational, technical, or vocational program 06/09/2022 Sex and Gender Information Value Date Recorded Sex Assigned at Female 10/24/2021 3:36 AM CDT Gender Identity Female 05/28/2017 8:00 PM DOCUMENT REVIEW ATTORNEY Sexual Orientation Straight 05/28/2017 8: 00 PM DOCUMENT REVIEW ATTORNEY Last Filed Vital Signs Vital Sign Reading Time Taken Comments Blood Pressure 102/63 02/01/2023 3:[address] Pulse 62 02/01/2023 3:27 PM CDT Temperature 36.4 ??C (97.5 ??F) 02/01/2023 3:27 PM CD T Respiratory Rate - - Oxygen Saturation 97% 05/18/2022 2:49 PM DOCUMENT REVIEW ATTORNEY Inhaled Oxygen Concentration - - Weight 126 kg (278 lb 3.5 oz) 02/01/2023 3:27 PM CDT Height 165 cm (5' 4.96) 06/14/2022 3:24 PM DOCUMENT REVIEW ATTORNEY Body Mass Index 46.35 06/14/2022 3:24 PM DOCUMENT REVIEW ATTORNEY Plan of Treatment Health Maintenance Due Date Last Done Comments CT Colonography 1975 Cologuard 1975 Colonoscopy 1975 Colorectal Cancer Screening 1975 FIT 1975 Hepatitis C Screening 1975 Tobacco Cessation counseling 1975 Pneumococcal vaccine (0-64 y ears) (1 of 2 - PCV) 11/27/1981 Hepatitis B Vaccines (1 of 3 - 19+ 3-dose series) 11/27/1994 Mammogram 07/15/2020 07/15/2019, 09/19/2017 Depression Screening (Annual PHQ-2) 07/09/2023 Creatinine Level [...] exists Visit: Chronic Disease, age 18+ 02/02/2024 COVID-19 Vaccine (3 - 2022-2 4 season) 2024 06/28/2021, 06/07/2021 Influenza Vaccine (#1) 2024 , 06/28/2021, 05/07/2019, Additional history exists DTaP,Tdap,and Td [...] inpatients and all outpatients) 07/15/2019 3:40 PM DOCUMENT REVIEW ATTORNEY Screening Mammogram Breast Cancer HIV-1/-2 AG AND AB SCREEN Routine 06/13/2017 4:01 PM DOCUMENT REVIEW ATTORNEY Screening For Venereal Disease from Last 3 [...] CDT Chandan Camarillo M.D. LAB BLOOD ADD-ON [facility] [address] [place] [address], [facility] in [place] [address] [place] [phone] * (ABNORMAL) Basic Metabolic Panel (02/01/2023 3:20 [...] CDT Chandan Camarillo M.D. LAB BLOOD ADD-ON [facility] [address] [place] [address], [facility] [place] [address] [place] [phone] * BI Breast Screening Bilateral with Tomosynthesis (07/15/2019 3:40 PM DOCUMENT REVIEW ATTORNEY) Anatomical Region Laterality Modality Breast, Breast Imaging RST L OS, Breast Imaging ARZ LOS, Breast Imaging FLA LOS Bilateral Mammography 07/16/2019 9:59 AM DOCUMENT REVIEW ATTORNEY Impressions 07/16/2019 10:02 AM DOCUMENT REVIEW ATTORNEY Negative. RECOMMENDATION: ??Annual Screening Mammogram ASSESSMENT: ??BI-RADS: 1: Negative. Narrative 07/16/2019 10:02 AM DOCUMENT REVIEW ATTORNEY EXAM: ??BI BREAST SCREENING BILATERAL WITH TOMOSYNTHESIS [...] ASSESSMENT: BI-RADS: 1: Negative. Chandan Camarillo M.D. [facility] BI PROCEDURES * HIV-1/-2 Ag and Ab Screen (06/13/2017 4:01 PM DOCUMENT REVIEW ATTORNEY) HIV-1/-2 Ag and Ab Screen, S Negative Negative 06/14/2017 11:55 AM DOCUMENT REVIEW ATTORNEY FOR[facility] NAMED [facility] Comment: Negative result does not rule out HIV infection. If acute HIV infection is suspected in a high-risk individual, submit plasma specimen for HIV-1 RNA quantification test (HIVDQ) and/or HIV-2 DNA/RNA test (FHV2Q). Blood (Blood, Venous) 06/13/2017 4:01 PM DOCUMENT REVIEW ATTORNEY 06/14/2017 7:58 AM DOCUMENT REVIEW ATTORNEY Kellie Hernandez APRN, C.N.P. LAB MICROBIOLO GY - BLOOD ORDERABLES FORMERLY NAMED [facility] [address] [place], [place] [id number] from Last 3 Months or Most Recently Relevant to Health Maintenance Care Teams Quality Control Head Relationship Specialty Start Date End Date None Reported, Pcp PCP - General Family Medicine 03/05/24
--- OUTSIDE RECORDS SUMMARY | 2024-03-26 07:37 | XMS_ITS | Encounter Summary ---
Author Organization [facility] Address [address] [place] [address] Care Team Providers Care Brimmer Blocker Name Role Phone None Reported, Pcp Primary Care Provider Unavail able Reason for Visit * Reason Onset Date Comments Quality 03/04/2024 Encounter Details Date Type Department Care Team (Late st Contact Info) Description 03/04/2024 Clinical Communication Department of Family Medicine, [facility], in [place], [place] [address] [place] [address] Ni De La Cruz RPhil [address] [place] [phone] Quality Social History Tobacco Use Types Packs/Day Years [...] often do you attend chur ch or religion services? More than 4 times per year 06/09/2022 Do you belong to any clubs o r organizations such as hoahaoism groups, unions, fraternal or athletic groups, or [...] Score 1 01/25/2023 [facility] - Occupational Stress Questionnaire Answer Date Recorded [...] your living situation today? I have a [facility] place to live 01/25/2023 Education Answer Date Recorded What is the highest level of school you have completed or the highest degree you have received? Associate degree: occupational, technical, or vocational program 06/09/2022 Sex and Gender Information Value Date Recorded Sex Assigned at Female 10/24/2021 3:36 AM CDT Gender Identity Female 05/28/2017 8:00 PM MARINE PIPEFITTER Sexual Orientation Straight 05/28/2017 8: 00 PM MARINE PIPEFITTER documented as of this encounter Plan of Treatment Not on file documented as of this encounter Visit Diagnoses Not on filedocumented in this encounter Additional Health Concerns Assessment Noted Time PHQ-9 Depression Total Score: 11 022 10:33 AM CDT documented as of this encounter Care Teams Brimmer Blocker Relationship Specialty Start Date End Date None Reported, Pcp PCP - General Family Medicine 03/05/24 documented as of this encounter
--- NOTE | 2024-03-26 07:45 | CRLHL7_ITS ---
For Patients: As a result of the Century Cures Act, medical imaging exams and procedure reports are released immediately into your electronic medical record. You may view this report before your referring provider. If you have questions, please contact your health care provider. BILATERAL SCREENING MAMMOGRAM WITH COMPUTER-AIDED DETECTION AND TOMOSYNTHESIS TECHNIQUE: CC and MLO views were obtained. These mammographic images have been obtained using full-field digital technique. These mammographic images were interpreted with the benefit of computer-aided detection. Breast Tomosynthesis was used in this interpretation. COMPARISON FILM: 07/15/19, 09/19/17. FINDINGS: The breasts are heterogeneously dense, which may obscure small masses. IMPRESSION: There is no radiographic evidence for malignancy. ASSESSMENT: BI-RADS Category 1: Negative RECOMMENDATION: Routine screening mammogram in 1 year. A lay language report of this examination will be provided to the patient. Jaxon Holland M.D. Diagnostic Radiologist [email or web address] SP/Dictated by: Jaxon Holland MD @ 03/27/2024 12:02:00 PM (Electronically Signed)
== END 2024-03-26 07:35 | disposition home or self-care (01) ==
LOC: MAMMO 07:35
PROVIDERS: PCP Family Medicine; Visit Provider Family Medicine
DX: Z12.31 Encounter for screening mammogram for malignant neoplasm of breast (principal); R92.2 Inconclusive mammogram
CPT/HCPCS: 77063; 77067

== ENCOUNTER 2024-06-03 13:37 | Outpatient (CLI) | payer BC, SELFPAY ==
--- OUTSIDE RECORDS SUMMARY | 2024-06-03 13:39 | XMS_ITS | Clinical Summary ---
Author Organization [facility] Address [address] [place] [address] Care Team Providers Care Top Dyeing Machine Loader Name Role Phone None Reported, Pcp Primary Care Provider Unavail able Source Comments Patient records contain information from all sites at [facility]. For routine questions regarding patient records, call [phone] during business hours, M-F 8:00 AM - 5:00 PM Central Time. Record requests for emergency care only can be directed to [phone] at any time.[facility] Allergies Active Allergy Reactions Criticality Noted Date Comments Anesthetics - Dinah Type- Parabens Other (see comments) 10/04/2013 ESTERS Penicillins Angioedema,Hives only, no other systemic symptoms 12/22/2014 hives,throat swelling (see note 10/11/2005) Sulfa (Sulfonamide Antibiotics) Other (see comments) 10/04/2013 SULFA DRUGS Medications * This document contains information received from the source organization and may not represent a complete record from that organization. citalopram (CeleXA) 20 mg tabletIndication s:Adjustment Disorder Mixed Reaction Take 1 tablet (20 mg total) by mouth daily. 90 tablet 3 02/01/2023 Active verapamiL (CALAN) 80 mg tabletIndication s:Migraine Headache,Hyperte nsion Essential Primary take one tablet by mouth three times a day 270 tablet 3 10/12/2023 Active losartan-hydroCH LOROthiazide (Hyzaar) 50-12.5 mg per tabletIndication s:Hypertension Essential Primary take one tablet by mouth [...] 03/04/2024 Clinical Communication Department of Family Medicine, [facility], in [address] [address] Ni De La Cruz, RRonaldoNRonaldo Quality from Last 3 Months Immunizations Name Administration [...] any clubs o r organizations such as rastafarian groups, unions, fraternal or athletic groups, or [...] Answer Date Recorded PHQ-2 Score 1 01/25/2023 [facility] - Occupational Stress [...] your living situation today? [facility] 01/25/2023 Education Answer Date Recorded What is the highest level of school you have completed or the highest degree you have received? Associate degree: occupational, technical, or vocational program 06/09/2022 Comments No Sex and Gender Information Value Date Recorded Sex Assigned at Female 10/24/2021 3:36 AM CDT Legal Sex Female 5:53 AM FREELANCE PROGRAMMER/APP DEVELOPER Gender Identity Female 05/28/2017 8:00 PM FREELANCE PROGRAMMER/APP DEVELOPER Sexual Orientation Straight 05/28/2017 8: 00 PM FREELANCE PROGRAMMER/APP DEVELOPER Last Filed Vital Signs Vital Sign Reading Time Taken Comments Blood Pressure 102/63 02/01/2023 3:[address] Pulse 62 02/01/2023 3:27 PM CDT Temperature 36.4 C (97.5 F) 02/01/2023 3:27 PM CDT Respiratory Rate - - Oxygen Saturation 97% 05/18/2022 2:49 PM FREELANCE PROGRAMMER/APP DEVELOPER Inhaled Oxygen Concentration - - Weight 126 kg (278 lb 3.5 oz) 02/01/2023 3:27 PM CDT Height 165 cm (5' 4.96) 06/14/2022 3:24 PM FREELANCE PROGRAMMER/APP DEVELOPER Body Mass Index 46.35 06/14/2022 3:24 PM FREELANCE PROGRAMMER/APP DEVELOPER Plan of Treatment Health Maintenance Due Date Last Done Comments CT Colonography 1975 Cologuard 1975 Colonoscopy 1975 Colorectal Cancer Screening 1975 FIT 1975 Hepatitis C Screening 1975 Tobacco Cessation counseling 1975 Pneumococcal vaccine (0-64 years) (1 of 2 - PCV) 11/27/1981 Hepatitis B Vaccines (1 of 3 - 19+ 3-dose series) 11/27/1994 Mammogram 07/15/2020 07/15/2019, 09/19/2017 Depression Screening (Annual PHQ-2) 07/09/2023 Creatinine Level (Kidney Function Test) 02/02/2024 02/01/2023, 02/01/2022, 01/02/2022, Additional history exists Fasting Glucose for Diabetes Screening 02/02/2024 02/01/2023, 11/29/2021, 05/01/2017, Additional history exists Lipid (Cholesterol) Screening 02/02/2024 02/01/2023, 11/29/2021, 05/01/2017 Office Visit for Blood Pressure Check / Re-check 02/02/2024 02/01/2023 Potassium Level 02/02/2024 02/01/2023, 01/07, 01/02/2022, Additional history exists Sodium Level 02/02/2024 02/01/2023, 01/07, 11/29/2021, Additional history exists Visit: Chronic Disease, age 18+ 02/02/2024 02/01/2023 COVID-19 Vaccine ( season) 2024 06/28/2021, 06/07/2021 Influenza Vaccine (#1) 2024 2, 06/28/2021, 05/07/2019, Additional history exists DTaP,Tdap,and Td Vaccines (2 - Td or Tdap) 12/22/2024 12/22/2014, 06/14/2006, 06/14/2006 HIV Screening Completed 06/13/2017 IPV Vaccines Aged Out No longer eligi ble based on patient's age to complete this topic Procedures Procedure Name Priority Date/Time Associated Diagnosis Comments LIPID PANEL, S Routine 02/01/2023 3:20 PM CDT Hyperlipidemia Mixed BASIC METABOLIC PANEL, S/P Routine 02/01/2023 3:20 PM CDT Hypertension Essential Primary BI BREAST SCREENING BILATERAL WITH TOMOSYNTHESIS RAD - Routine (most inpatients and all outpatients) 07/15/2019 3:40 PM FREELANCE PROGRAMMER/APP DEVELOPER Screening Mammogram Breast Cancer HIV-1/-2 AG AND AB SCREEN Routine 06/13/2017 4:01 PM FREELANCE PROGRAMMER/APP DEVELOPER Screening For Venereal Disease from Last 3 Months or Most Recently Relevant to Health Maintenance Results * (ABNORMAL) Lipid Panel (02/01/2023 3:20 PM CDT) Pathologist [facility] Triglycerides 251(H) mg/dL 02/01/2023 4:02 PM CDT [...] 3:20 PM CDT 02/01/2023 3:21 PM CDT us Chandan Camarillo M.D. LAB BLOOD ADD-ON Final Resul t [facility] [address] [place] [address], [facility] in [place] [address] [place] [phone] * (ABNORMAL) Basic Metabolic Panel (02/01/2023 3:20 [...] 3:20 PM CDT 02/01/2023 4:09 PM CDT us Chandan Camarillo M.D. LAB BLOOD ADD-ON Final Resul t [facility] [address] [place] [address], [facility] [place] [address] [place] [phone] * BI Breast Screening Bilateral with Tomosynthesis (07/15/2019 3:40 PM FREELANCE PROGRAMMER/APP DEVELOPER) Anatomical Region Laterality Modality Breast, Breast Imaging RST L OS, Breast Imaging ARZ LOS, Breast Imaging FLA LOS Bilateral Mammography 07/16/2019 9:59 AM FREELANCE PROGRAMMER/APP DEVELOPER Impressions 07/16/2019 10:02 AM FREELANCE PROGRAMMER/APP DEVELOPER Negative. RECOMMENDATION: Annual Screening Mammogram ASSESSMENT: BI-RADS: 1: Negative. Narrative 07/16/2019 10:02 AM FREELANCE PROGRAMMER/APP DEVELOPER EXAM: BI BREAST SCREENING BILATERAL WITH TOMOSYNTHESIS Current study was evaluated with a Computer Aided Detection (CAD) system. INDICATION: Screening mammogram. COMPARISON: Prior exam(s) were available and reviewed for comparison. DENSITY: c. The breast(s) are heterogeneously dense, which may obscure small masses. FINDINGS: No mammographic findings of malignancy. Procedure Note Jesús [...] Annual Screening Mammogram ASSESSMENT: BI-RADS: 1: Negative. us Chandan Camarillo M.D. IMG BI PROCEDURES Final Resu lt * HIV-1/-2 Ag and Ab Screen (06/13/2017 4:01 PM FREELANCE PROGRAMMER/APP DEVELOPER) HIV-1/-2 Ag and Ab Screen, S Negative Negative 06/14/2017 11:55 AM FREELANCE PROGRAMMER/APP DEVELOPER FORMER[facility] NAMED [facility] Comment: Negative result does not rule out HIV infection. If acute HIV infection is suspected in a high-risk individual, submit plasma specimen for HIV-1 RNA quantification test (HIVDQ) and/or HIV-2 DNA/RNA test (FHV2Q). Blood (Blood, Venous) 06/13/2017 4:01 PM FREELANCE PROGRAMMER/APP DEVELOPER 06/14/2017 7:58 AM FREELANCE PROGRAMMER/APP DEVELOPER Kellie Hernandez APRN, C.N.P. LAB MICROBIOLOGY - BLO OD ORDERABLES Final Result FOR[facility] NAMED [facility] [address] [place] [id number], [facility] from Last 3 Months or Most Recently Relevant to Health Maintenance Insurance [employer] Care Teams Top Dyeing Machine Loader Relationship Specialty Start Date End Date None Reported, Pcp PCP - General Family Medicine 03/05/24
--- OUTSIDE RECORDS SUMMARY | 2024-06-03 13:40 | XMS_ITS ---
Author Organization [facility] Address [address] [place] [address] Care Team Providers Care Cargoman Name Role Phone Unavailable Unavailable Unavailable Surgery Details Not on file Complications Check Surgery Details section. Procedure Estimated Blood Loss Check Surgery Details section. Procedure Findings Check Surgery Details section. Procedure Specimens Taken Check Surgery Details section.
--- OUTSIDE RECORDS SUMMARY | 2024-06-03 13:40 | XMS_ITS | Encounter Summary ---
Author Organization [facility] Address [address] [place] [address] Care Team Providers Care Web Production Artist Name Role Phone None Reported, Pcp Primary Care Provider Unavail able Reason for Visit * Reason Onset Date Comments Quality 03/04/2024 Encounter Details Date Type Department Care Team (Late st Contact Info) Description 03/04/2024 Clinical Communication Department of Family Medicine, [facility], in [place], [place] [address] [place] [address] Ni De La Cruz RPhil [address] [place] [phone] Quality Social History Tobacco Use Types Packs/Day [...] often do you attend chur ch or buddhism services? More than 4 times per year [...] Answer Date Recorded PHQ-2 Score 1 01/25/2023 [facility] - Occupational Stress Questionnaire Answer Date Recorded [...] your living situation today? I have a [facility] place to live 01/25/2023 Education Answer Date Recorded What is the highest level of school you have completed or the highest degree you have received? Associate degree: occupational, technical, or vocational program 06/09/2022 Comments No Sex and Gender Information Value Date Recorded Sex Assigned at Female 10/24/2021 3:36 AM CDT Legal Sex Female 5:53 AM ELECTRICIAN SUPERVISOR Gender Identity Female 05/28/2017 8:00 PM ELECTRICIAN SUPERVISOR Sexual Orientation Straight 05/28/2017 8: 00 PM ELECTRICIAN SUPERVISOR documented as of this encounter Plan of Treatment Not on file documented as of this encounter Visit Diagnoses Not on filedocumented in this encounter Additional Health Concerns Assessment Noted Time PHQ-9 Depression Total Score: 11 022 10:33 AM CDT documented as of this encounter Care Teams Web Production Artist Relationship Specialty Start Date End Date None Reported, Pcp PCP - General Family Medicine 03/05/24 documented as of this encounter
--- OUTSIDE RECORDS SUMMARY | 2024-06-03 13:40 | XMS_ITS | Referral Summary ---
Author Organization [facility] Address [address] [place] [id number] Care Team Providers Care Opticianry Teacher Name Role Phone None Reported, Pcp Primary Care Provider Unavail able Source Comments Patient records contain information from all sites at [facility]. For routine questions regarding patient records, call [phone] during business hours, M-F 8:00 AM - 5:00 PM Central Time. Record requests for emergency care only can be directed to [phone] at any time.[facility] Encounters Date Type Department Care Team Description 03/04/2024 Clinical Communication Department of Family Medicine, [facility], in [address] [address] Ni De La Cruz R.N. Quality from Last 3 Months Allergies Active Allergy [...] week 06/09/2022 How often do you attend [facility] or muslim services? More than 4 times per year 06/09/2022 Do you belong to any clubs o r organizations such as [employer] groups, unions, fraternal or athletic groups, or [...] Answer Date Recorded PHQ-2 Score 1 01/25/2023 [facility] [place] of Occupat ional Health - Occupational Stress [...] your living situation today? I have a [facility] place to live 01/25/2023 Education Answer Date Recorded What is the highest level of school you have completed or the highest degree you have received? Associate degree: occupational, technical, or vocational program 06/09/2022 Comments No Sex and Gender Information Value Date Recorded Sex Assigned at Female 10/24/2021 3:36 AM CDT Legal Sex Female 5:53 AM A P MECHANIC Gender Identity Female 05/28/2017 8:00 PM A P MECHANIC Sexual Orientation Straight 05/28/2017 8: 00 PM A P MECHANIC Last Filed Vital Signs Vital Sign Reading Time Taken Comments Blood Pressure 102/63 02/01/2023 3:[address] Pulse 62 02/01/2023 3:27 PM CDT Temperature 36.4 C (97.5 F) 02/01/2023 3:27 PM CDT Respiratory Rate - - Oxygen Saturation 97% 05/18/2022 2:49 PM A P MECHANIC Inhaled Oxygen Concentration - - Weight 126 kg (278 lb 3.5 oz) 02/01/2023 3:27 PM CDT Height 165 cm (5' 4.96) 06/14/2022 3:24 PM A P MECHANIC Body Mass Index 46.35 06/14/2022 3:24 PM A P MECHANIC Plan of Treatment Not on file Procedures Procedure Name Priority Date/Time Associated Diagnosis Comments LIPID PANEL, S Routine 02/01/2023 3:20 PM CDT Hyperlipidemia Mixed BASIC METABOLIC PANEL, S/P Routine 02/01/2023 3:20 PM CDT Hypertension Essential Primary BI BREAST SCREENING BILATERAL WITH TOMOSYNTHESIS RAD - Routine (most inpatients and all outpatients) 07/15/2019 3:40 PM A P MECHANIC Screening Mammogram Breast Cancer HIV-1/-2 AG AND AB SCREEN Routine 06/13/2017 4:01 PM A P MECHANIC Screening For Venereal Disease from Last 3 [...] M.D. LAB BLOOD ADD-ON Final Resul t [facility] [address] [place] [address], [facility] [address] [place] [address] * (ABNORMAL) Basic Metabolic Panel (02/01/2023 3:20 [...] M.D. LAB BLOOD ADD-ON Final Resul t [facility] [address] [place] [address], [facility] [address] [facility] [place] [address] * BI Breast Screening Bilateral with Tomosynthesis (07/15/2019 3:40 PM A P MECHANIC) Anatomical Region Laterality Modality Breast, Breast Imaging RST L OS, Breast Imaging ARZ LOS, Breast Imaging FLA LOS Bilateral Mammography 07/16/2019 9:59 AM A P MECHANIC Impressions 07/16/2019 10:02 AM A P MECHANIC Negative. RECOMMENDATION: Annual Screening Mammogram ASSESSMENT: BI-RADS: 1: Negative. Narrative 07/16/2019 10:02 AM A P MECHANIC EXAM: BI BREAST SCREENING BILATERAL WITH TOMOSYNTHESIS [...] Ag and Ab Screen (06/13/2017 4:01 PM A P MECHANIC) HIV-1/-2 Ag and Ab Screen, S Negative Negative 06/14/2017 11:55 AM A P MECHANIC [facility] Comment: Negative result does not rule out HIV infection. If acute HIV infection is suspected in a high-risk individual, submit plasma specimen for HIV-1 RNA quantification test (HIVDQ) and/or HIV-2 DNA/RNA test (FHV2Q). Blood (Blood, Venous) 06/13/2017 4:01 PM A P MECHANIC 06/14/2017 7:58 AM A P MECHANIC Kellie Hernandez APRN, C.N.P. LAB MICROBIOLOGY - BLO OD ORDERABLES Final Result [facility] [address] [place] [address] from Last 3 Months or Most Recently Relevant to Health Maintenance Insurance [employer] Care Teams Opticianry Teacher Relationship Specialty Start Date End Date None Reported, Pcp PCP - General Family Medicine 03/05/24
--- OUTSIDE RECORDS SUMMARY | 2024-06-03 13:40 | XMS_ITS | Encounter Summary ---
Author Organization [facility] Address [address] [place] [address] Care Team Providers Care Table Games Manager Name Role Phone None Reported, Pcp Primary Care Provider Unavail able Encounter Details Date Type Department Care Team (Late st Contact Info) Description 05/18/2010 Historical Ophthalmology [facility] [place] [address] Social History Tobacco Use Types Packs/Day Years Used Date Smoking Tobacco: Never Assessed Comments Unknown Sex and Gender Information Value Date Recorded Sex Assigned at Female 10/24/2021 3:36 AM CDT Legal Sex Female 5:53 AM CONFERENCE CONCIERGE Gender Identity Female 05/28/2017 8:00 PM CONFERENCE CONCIERGE Sexual Orientation Straight 05/28/2017 8: 00 PM CONFERENCE CONCIERGE documented as of this encounter Progress Notes [...] right eye CDM Reports - EYEGEN Id: [id number] Status: Fnl documented in this encounter Plan of Treatment Not on file documented as of this encounter Visit Diagnoses Not on filedocumented in this encounter Additional Health Concerns Infection Onset Date Last Indicated Resolved Time COVID19 07/27/2022 07/27/2022 08/16/2022 5:24 AM CONFERENCE CONCIERGE documented as of this encounter Care Teams Table Games Manager Relationship Specialty Start Date End Date None Reported, Pcp PCP - General Family Medicine 03/05/24 documented as of this encounter
--- NOTE | 2024-06-03 13:45 | CRLHL7_ITS ---
For Patients: As a result of the Century Cures Act, medical imaging exams and procedure reports are released immediately into your electronic medical record. You may view this report before your referring provider. If you have questions, please contact your health care provider. INDICATION: Leg pain and swelling TECHNIQUE: Ultrasound venous duplex lower right extremity. Compression venous exam was performed using wiley-scale, color Doppler, and spectral Doppler imaging. COMPARISON: None. FINDINGS: There is focal deep venous thrombosis within the posterior tibial vein with likely extension into the posterior tibial and peroneal veins. Superficial thrombophlebitis is also appreciated within the greater saphenous vein from the mid calf to the proximal thigh, 5 centimeters from the superficial femoral junction. Otherwise, the common femoral, proximal deep femoral, superficial femoral and proximal popliteal veins are compressible with augmentation of flow upon compression. Palpable lumps in the distal thigh correspond to superficial thrombophlebitis within focal thrombosed varicose veins IMPRESSION: 1. Deep venous thrombosis within the posterior tibial veins and likely peroneal vein. Encroachment of the distal popliteal vein is also appreciated. 2. Superficial thrombophlebitis within the greater saphenous vein and focal distal thigh varicose veins corresponding to an area of palpable concern. Findings discussed with Dr. Darling at 3:06 p.m. June 03, 2024 Dictated by Herman Myrick MD @ 06/03/2024 3:12:58 PM (Electronically Signed)
== END 2024-06-03 13:38 | disposition home or self-care (01) ==
PROVIDERS: PCP Family Medicine; Visit Provider Family Medicine
DX: M79.604 Pain in right leg (principal); I82.4Z1 Acute embolism and thrombosis of unspecified deep veins of right distal lower extremity; I80.01 Phlebitis and thrombophlebitis of superficial vessels of right lower extremity; M79.89 Other specified soft tissue disorders
CPT/HCPCS: 93971

== ENCOUNTER 2025-01-21 07:46 | Outpatient (CLI) | payer OTHER, SELFPAY | END 2025-01-21 07:47 | disposition home or self-care (01) | LOC: NFLDREF 01-22 18:07 | PROVIDERS: PCP Family Medicine; Referring Provider Family Medicine; Visit Provider Family Medicine | DX: E78.2 Mixed hyperlipidemia (principal); R73.03 Prediabetes | CPT/HCPCS: 80053; 80061 ==